=== PATIENT | male | born 1990 | race Caucasian/White ===

== ENCOUNTER 2019-09-07 09:11 | Emergency (ER) | payer OTHER ==
[~2019-09-07] VITALS: Ht 177.8 cm; Wt 136.1 kg
[2019-09-07 09:49] VITALS: BP 152/80
[2019-09-07 12:47] LABS: ALBUMIN 3.9 g/dL (3.4-5.0); BILIRUBIN,DIRECT 0.1 mg/dL (0.0-0.3); TOTAL BILIRUBIN 0.5 mg/dL (0.0-1.0)
[2019-09-07 14:22] VITALS: BP 152/80
--- NOTE | 2019-09-07 14:22 | NUR ---
Patient discharged with v/s stable. Written and verbal after care instructions given and explained. Patient verbalized understanding. Ambulatory with steady gait. All questions addressed prior to discharge. Advised to follow up with PMD.
--- NOTE | 2019-09-07 14:22 | NUR ---
dirty needle stick to left palm---immediately washed hands
[2019-09-08 08:07] LABS: HEPATITIS B SURFACE ANTIBODY Reactive (.)
== END 2019-09-07 14:42 | disposition home or self-care (01) ==
LOC: MED 09:11
DX: Z77.21 Contact with and (suspected) exposure to potentially hazardous body fluids (principal)
CPT/HCPCS: 36415; 80076; 86702; 86706; 86803; 90471; 90715; 99283